=== PATIENT | female | born 1990 | race Caucasian/White ===

== ENCOUNTER 2017-08-18 19:52 | Emergency (ER) | payer OTHER ==
[~2017-08-18] VITALS: Ht 149.9 cm; Wt 60.9 kg
[~2017-08-18 19:52] MED LIST: AMOXICILLIN500 MG PO; CEFTIN250 MG PO; CHILDREN'S CHE1 EAC1 PO; ENDOCET 5-3251 EACH PO; FIORICET,ESG1 TABLET PO; HYDROCODON-ACE1 EAC7 PO; IBUPROFEN800 MG PO; KEFLEX500 MG PO; MOTRIN600 MG PO; Motrin PO; NOHOMEMEDS; PRENATAL TABLE1 EAC3 PO; TYLENOL REGULA325 MG PO; TYLENOL WITH C1 EACH PO
[2017-08-18 19:57] VITALS: BP 122/105
[2017-08-18 20:44] LABS: HEMATOCRIT 39.7 % (36.0-46.0); HEMOGLOBIN 13.8 G/DL (11.9-15.5); MCH 31.4 PG (29.0-34.0); MCHC 34.8 G/DL (30.0-36.0); MCV 90.2 FL (83-99); PLATELET COUNT 267 K/uL (156-360); RBC DIS.WIDTH-CV 13.5 % (11.8-14.6); WHITE BLOOD COUNT 9.8 K/uL (4.1-10.2)
[2017-08-18 21:06] LABS: ALBUMIN 3.2 g/dL (3.2-4.8); CHLORIDE 109 mEq/L (99-109); POTASSIUM 3.9 mEq/L (3.7-5.4); SODIUM 137 mEq/L (136-147)
[2017-08-18 21:07] LABS: GLUCOSE 102 mg/dL (70-99); TOTAL PROTEIN 6.6 g/dL (6.4-8.3)
[2017-08-18 21:09] LABS: TOTAL BILIRUBIN 0.3 mg/dL (0.0-1.0)
[2017-08-18 21:10] LABS: ALKALINE PHOSPHATASE 105 IU/L (3-129); CREATININE 0.6 mg/dL (0.6-1.3); GFR ESTIMATE (CALCULATED) > 59 mL/min/
[2017-08-18 21:11] LABS: UREA NITROGEN (BUN) 5 mg/dL (9-23)
[2017-08-18 21:12] LABS: AST (GOT) 14 IU/L (2-34)
[2017-08-18 21:13] LABS: ALT (GPT) 11 IU/L (3-49)
[2017-08-18 21:18] LABS: LIPASE 19 U/L (1.0-51.0)
[2017-08-18 21:39] LABS: QUANTITATIVE HCG 23437.5 MIU/ML
[2017-08-18 21:57] LABS: APPEARANCE CLOUDY ((CLEAR)); BILIRUBIN NEGATIVE; BLOOD NEGATIVE; GLUCOSE (STRIP) NEGATIVE; KETONES NEGATIVE; LEUKOCYTES LARGE; NITRITE POSITIVE; PROTEIN (STRIP) NEGATIVE; SPECIFIC GRAVITY 1.019 (1.000-1.030); UROBILINOGEN 0.2 MG/DL (0.2-1.0)
[2017-08-18 21:59] LABS: COLOR YELLOW ((YELLOW))
[2017-08-18 22:28] LABS: EPITHELIAL CELLS 2+ /HPF; MUCUS 1+ /LPF; RED BLOOD CELLS NONE SEEN /HPF (0-5); WHITE BLOOD CELLS TNTC /HPF (0-5)
[2017-08-18 22:29] LABS: BACTERIA 3+ /HPF; UCUL ADDED? YES
[2017-08-19] MEDS ORDERED: PERCOCET 5/31 TABLET PO (00:56)
[2017-08-19] MEDS ORDERED: MACROBID100 MG PO (00:56)
== END 2017-08-19 01:08 | disposition home or self-care (01) ==
LOC: EME 19:52
DX: O99.612 Diseases of the digestive system complicating pregnancy, second trimester (principal); K80.20 Calculus of gallbladder without cholecystitis without obstruction; O23.42 Unspecified infection of urinary tract in pregnancy, second trimester; Z3A.19 19 weeks gestation of pregnancy; O99.332 Smoking (tobacco) complicating pregnancy, second trimester; F17.200 Nicotine dependence, unspecified, uncomplicated; O26.892 Other specified pregnancy related conditions, second trimester; M41.9 Scoliosis, unspecified; Z88.5 Allergy status to narcotic agent
CPT/HCPCS: 76705; 80053; 81003; 83690; 84702; 85027; 87077; 87086; 87186; 99281; 99284

== ENCOUNTER → 2017-10-25 | Outpatient (CLI) | payer OTHER ==
[~2017-10-25] VITALS: Ht 147.3 cm; Wt 64.5 kg
[~2017-10-25] MED LIST changes: +GUMMI BEAR MUL1 EACH PO; +MACROBID100 MG PO; +PERCOCET 5/31 TABLET PO
[2017-10-25 09:00] VITALS: BP 114/69
== END | disposition home or self-care (01) ==
LOC: IVINF 08:48
DX: Z34.80 Encounter for supervision of other normal pregnancy, unspecified trimester (principal); Z3A.00 Weeks of gestation of pregnancy not specified; Z67.91 Unspecified blood type, Rh negative
CPT/HCPCS: 96372; J2790

== ENCOUNTER 2017-12-08 03:29 | Outpatient (CLI) | payer OTHER ==
[~2017-12-08] VITALS: Ht 149.9 cm; Wt 66.0 kg
[2017-12-08 03:56] VITALS: BP 126/72
[2017-12-08 06:13] LABS: APPEARANCE SL.HAZY ((CLEAR)); BILIRUBIN NEGATIVE; BLOOD NEGATIVE; COLOR YELLOW ((YELLOW)); GLUCOSE (STRIP) NEGATIVE; KETONES NEGATIVE; LEUKOCYTES SMALL; NITRITE NEGATIVE; PROTEIN (STRIP) NEGATIVE; SPECIFIC GRAVITY 1.002 (1.000-1.030); UROBILINOGEN 0.2 MG/DL (0.2-1.0)
[2017-12-08 06:15] LABS: BACTERIA RARE /HPF; EPITHELIAL CELLS RARE /HPF; MUCUS TRACE /LPF; RED BLOOD CELLS 0-5 /HPF (0-5); UCUL ADDED? NO; WHITE BLOOD CELLS 0-5 /HPF (0-5)
[2017-12-08 06:31] LABS: AMPHETAMINE NEGATIVE (500 ng/mL); BARBITURATES NEGATIVE (200 ng/mL); BENZODIAZEPINES NEGATIVE (150 ng/mL); BUPRENORPHINE NEGATIVE (10 ng/mL); COCAINE NEGATIVE (150 ng/mL); METHADONE NEGATIVE (200 ng/mL); METHAMPHETAMINE NEGATIVE (500 ng/mL); OPIATES (MORPHINE) NEGATIVE (100 ng/mL); OXYCODONE NEGATIVE (100 ng/mL); PHENCYCLIDINE NEGATIVE (25 ng/mL); PROPOXYPHENE NEGATIVE (300 ng/mL); THC CANNABINOIDS NEGATIVE (50 ng/mL); TRICYCLIC ANTIDEPRESSANTS NEGATIVE (300 ng/mL)
[2017-12-08 07:00] VITALS: BP 111/56
[2017-12-08 09:52] LABS: HEMATOCRIT 33.1 % (36.0-46.0); HEMOGLOBIN 10.7 G/DL (11.9-15.5); MCH 28.2 PG (29.0-34.0); MCHC 32.3 G/DL (30.0-36.0); MCV 87.3 FL (83-99); PLATELET COUNT 193 K/uL (156-360); RBC DIS.WIDTH-CV 14.6 % (11.8-14.6); RBC DIS.WIDTH-SD 46.2 % (39-53); RED BLOOD COUNT 3.79 M/uL (3.80-5.20); WHITE BLOOD COUNT 5.7 K/uL (4.1-10.2)
[2017-12-08] MEDS ORDERED: NITROFURANTOIN100 M3 PO (09:53)
[2017-12-08 10:21] LABS: ABS NEUTROPHIL COUNT 3.8; ATYPICAL LYMPHOCYTE 0.9 %; BAND NEUTROPHILS 11.5 % (0-8.0); BURR CELLS 1+; EOSINOPHIL ABS CT 0; LYMPHOCYTES 24.8 % (15.0-45.0); MONOCYTES 7.1 % (0-9.0); PLAT.SUFFICIENCY ADEQUATE; POIKILOCYTOSIS 1+; POLYCHROMASIA 1+; SEG.NEUTROPHILS 55.7 % (46.0-76.0)
== END 2017-12-08 11:54 | disposition home or self-care (01) ==
LOC: LDRP-OP 03:29 → 2WEST 03:30 → LDRP-OP 02-12 09:51
PROVIDERS: Advanced Practice Midwife; Obstetrics & Gynecology
DX: O99.89 Other specified diseases and conditions complicating pregnancy, childbirth and the puerperium (principal); M54.5 Low back pain; O23.43 Unspecified infection of urinary tract in pregnancy, third trimester; Z3A.34 34 weeks gestation of pregnancy; O99.613 Diseases of the digestive system complicating pregnancy, third trimester; K80.20 Calculus of gallbladder without cholecystitis without obstruction; O09.33 Supervision of pregnancy with insufficient antenatal care, third trimester; O99.343 Other mental disorders complicating pregnancy, third trimester; F32.9 Major depressive disorder, single episode, unspecified; Z87.59 Personal history of other complications of pregnancy, childbirth and the puerperium; O99.333 Smoking (tobacco) complicating pregnancy, third trimester; F17.200 Nicotine dependence, unspecified, uncomplicated
CPT/HCPCS: 59025; 76770; 81003; 85025; 87077; 87086; 87186; G0378; J7120

== ENCOUNTER 2018-01-01 05:42 | Inpatient (IN) | payer OTHER ==
[2018-01-01] VITALS (8 sets, daily range): BP systolic 122–136; BP diastolic 60–80
[~2018-01-01] VITALS: Ht 152.4 cm; Wt 62.0 kg
[~2018-01-01 05:42] MED LIST changes: +NITROFURANTOIN100 M3 PO
[2018-01-01 06:44] LABS: BASOPHIL (%) 0.2 % (0-1); EOSINOPHIL (%) 0.1 % (0-5); HEMATOCRIT 34.7 % (36.0-46.0); HEMOGLOBIN 11.6 G/DL (11.9-15.5); IMMATURE GRANULOCYTE (%) 0.5 % (0.0-0.7); LYMPHOCYTE (%) 14.3 % (15-42); LYMPHOCYTE COUNT 2.7 K/uL (1.0-2.8); MCH 28.9 PG (29.0-34.0); MCHC 33.4 G/DL (30.0-36.0); MCV 86.5 FL (83-99); MONOCYTE (%) 9.3 % (3-12); MONOCYTE COUNT 1.8 K/uL (0-0.8); NEUTROPHIL (%) 75.6 % (45-76); NEUTROPHIL COUNT 14.4 K/uL (1.8-6.4); PLATELET COUNT 184 K/uL (156-360); RBC DIS.WIDTH-CV 16.6 % (11.8-14.6); RBC DIS.WIDTH-SD 51.4 % (39-53); RED BLOOD COUNT 4.01 M/uL (3.80-5.20); WHITE BLOOD COUNT 19.1 K/uL (4.1-10.2)
[2018-01-01 10:22] LABS: AMPHETAMINE NEGATIVE (500 ng/mL); BARBITURATES NEGATIVE (200 ng/mL); BENZODIAZEPINES NEGATIVE (150 ng/mL); BUPRENORPHINE NEGATIVE (10 ng/mL); COCAINE NEGATIVE (150 ng/mL); METHADONE NEGATIVE (200 ng/mL); METHAMPHETAMINE NEGATIVE (500 ng/mL); OPIATES (MORPHINE) NEGATIVE (100 ng/mL); OXYCODONE NEGATIVE (100 ng/mL); PHENCYCLIDINE NEGATIVE (25 ng/mL); PROPOXYPHENE NEGATIVE (300 ng/mL); THC CANNABINOIDS NEGATIVE (50 ng/mL); TRICYCLIC ANTIDEPRESSANTS NEGATIVE (300 ng/mL)
[2018-01-01 10:31] LABS: TREPONEMA ANTIBODY NEGATIVE (NEGATIVE)
[2018-01-02 05:39] LABS: BASOPHIL (%) 0.5 % (0-1); EOSINOPHIL (%) 1.8 % (0-5); EOSINOPHIL COUNT 0.1 K/uL (0-0.3); HEMATOCRIT 30.5 % (36.0-46.0); HEMOGLOBIN 9.8 G/DL (11.9-15.5); IMMATURE GRANULOCYTE (%) 0.8 % (0.0-0.7); LYMPHOCYTE (%) 28.4 % (15-42); LYMPHOCYTE COUNT 2.3 K/uL (1.0-2.8); MCH 28.7 PG (29.0-34.0); MCHC 32.1 G/DL (30.0-36.0); MCV 89.4 FL (83-99); MONOCYTE COUNT 0.7 K/uL (0-0.8); NEUTROPHIL (%) 59.5 % (45-76); NEUTROPHIL COUNT 4.8 K/uL (1.8-6.4); NRBC (%) 0.5 /100 WBC (0-0); PLATELET COUNT 169 K/uL (156-360); RBC DIS.WIDTH-CV 16.9 % (11.8-14.6); RBC DIS.WIDTH-SD 54.3 % (39-53); RED BLOOD COUNT 3.41 M/uL (3.80-5.20)
[2018-01-02] MEDS ORDERED: DOCUSATE SODIU100 MG PO (09:49)
[2018-01-02] MEDS ORDERED: FERROCITE324 MG PO (09:50)
[2018-01-03] MEDS ORDERED: Tylenol Extra Streng PO (09:13)
[2018-01-03] MEDS ORDERED: IBUPROFEN800 MG PO (09:14)
[2018-01-03] MEDS ORDERED: SPRINTEC1 EACH PO (09:29)
== END 2018-01-03 11:20 | disposition home or self-care (01) | DRG 775 ==
LOC: LDRP-OP → 2WEST 05:43 → LDRP-OP 02-12 12:03
PROVIDERS: Advanced Practice Midwife
DX: O41.1230 Chorioamnionitis, third trimester, not applicable or unspecified (principal); Z37.0 Single live birth; Z3A.38 38 weeks gestation of pregnancy; O77.0 Labor and delivery complicated by meconium in amniotic fluid; O99.334 Smoking (tobacco) complicating childbirth; F17.200 Nicotine dependence, unspecified, uncomplicated; O69.81X0 Labor and delivery complicated by cord around neck, without compression, not applicable or unspecified
CPT/HCPCS: 83030; 85025; 86780; 86850; 86880; 86900; 86901; 88307; J2790; J7120